=== PATIENT | male | born 1980 | race Two or more races ===

== ENCOUNTER 2019-10-22 20:46 | Inpatient (IN) | payer MEDICAID ==
[~2019-10-22] VITALS: Ht 170.2 cm; Wt 84.8 kg
[2019-10-22 21:00] VITALS: BP 107/68
[2019-10-22] MEDS ORDERED: Azithromycin 500 MG in D5W 275 ML IVPB ONE (21:00)
[2019-10-22] MEDS ORDERED: cefTRIAXone 1 GM in NS 55 ML IVPB ONE (21:00)
[2019-10-22] MEDS ORDERED: Acetaminophen 500mg (ES) tab ORAL ONE ×2 (21:22→22:00)
--- NOTE | 2019-10-22 21:52 | Emergency Room Report ---
History of Present Illness General Chief Complaint: Flu Like Symptoms Source: Patient Present Illness HPI Patient was evaluated earlier today. His x-ray was consistent with COVID-19 pneumonia. He refused labs and signed out AMA stating he wanted to go to [place] to . He is returned at this time. He has been ill for several weeks with cough shortness of breath fevers and chills muscle aches. He does not smoke. This is the history that was obtained before: Patient presents with 1 week of worsening symptoms. He has had a cough, some chest pain with the cough, high fevers, weakness and muscle aches and occasional headache and some dyspnea on exertion. Recently the dyspnea is worsened. He feels this at rest. He is felt some nausea but denies vomiting. His stools have occasionally been loose. 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 He is not diabetic or hypertensive. He is concerned he has COVID-19. No sore throat, palpitations, dysuria, abdominal pain, rashes, depression, anxiety, visual changes, dizziness. 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 [facility] Reviewed Nursing Documentation: PMH: Agreed; PSxH: Agreed Nursing Documentation-PMH Past Medical History: No Stated History Review of Systems All Other Systems: negative except mentioned in HPI Physical Exam Vital Signs Date Time Temp Pulse Resp B/P (MAP) Pulse Ox O2 Delivery O2 Flow Rate FiO2 10/22/19 20:59 102.4 118 22 107/68 (81) 92 Room Air Sp02 EP Interpretation: reviewed, abnormal - Interpreted as low by me General Appearance: well appearing, no apparent distress, GCS 15, non-toxic Head: normocephalic Eyes: bilateral eye normal inspection, bilateral eye PERRL, bilateral eye EOMI ENT: normal pharynx, moist mucus membranes Neck: full range of motion, supple Respiratory: lungs clear, respiratory distress - Minimal with exertion, crackles Cardiovascular #1: no edema, tachycardia Cardiovascular #2: 2+ radial (R) Gastrointestinal: normal inspection, normal bowel sounds, non tender, no mass, non-distended Genitourinary: no CVA tenderness Musculoskeletal: back normal, normal range of motion, gait/station normal Neurologic: alert, oriented x3, grossly normal Psychiatric: mood/affect normal Skin: no rash, other - Warm to touch Medical Decision Making Diagnostic Impression: Primary Impression: Pneumonia due to COVID-19 virus ER Course Patient returns with hypoxia pulmonary infiltrates and fever. Differential includes bacterial versus viral pneumonia. Patient is highly suspected for having COVID-19 disease. Evaluation this time with EKG and labs. Tylenol given , Rocephin and azithromycin and dexamethasone given. Other treatment may be tailored to lab results. Patient treated with some IV hydration but not excessive. EKG no injury. Chest x-ray from prior visit with bilateral infiltrates. Normal to low white count. CMP essentially normal except for increased alkaline phosphatase. Indirect markers for COVID-19 are positive including C- reactive protein, ferritin and LDH. Troponin is negative. D-dimer is negative. Based on normal coagulation studies Lovenox is held. Patient without dyspnea at rest without oxygen. This may change. Discussed results with patient. Patient admitted to the hospital for further observation and considerations for other treatment. Laboratory Tests Test 10/22/19 21:30 White Blood Count 6.7 K/UL (4.8-10.8) Red Blood Count 5.32 M/UL (4.70-6.10) Hemoglobin 15.7 G/DL (14.2-18.0) Hematocrit 46.0 % (42.0-52.0) Mean Corpuscular Volume 86 FL (80-99) Mean Corpuscular Hemoglobin 29.6 PG (27.0-31.0) Mean Corpuscular Hemoglobin Concent 34.2 G/DL (32.0-36.0) Red Cell Distribution Width 11.3 % (11.6-14.8) L Platelet Count 141 K/UL (150-450) L Mean Platelet Volume 7.1 FL (6.5-10.1) Neutrophils (%) (Auto) 69.5 % (45.0-75.0) Lymphocytes (%) (Auto) 21.5 % (20.0-45.0) Monocytes (%) (Auto) 8.2 % (1.0-10.0) Eosinophils (%) (Auto) 0.0 % (0.0-3.0) Basophils (%) (Auto) 0.8 % (0.0-2.0) Prothrombin Time 13.0 SEC (9.30-11.50) H Prothrombin Time INR 1.2 (0.9-1.1) H Activated Partial Thromboplast Time 34 SEC (23-33) H D-Dimer 0.31 mg/L FEU (0.00-0.49) Urine Color Yellow Urine Appearance Clear Urine pH 6 (4.5-8.0) Urine Specific [place] 1.010 (1.005-1.035) Urine Protein 2+ (NEGATIVE) H Urine Glucose (UA) Negative (NEGATIVE) Urine Ketones 2+ (NEGATIVE) H Urine Blood Negative (NEGATIVE) Urine Nitrite Negative (NEGATIVE) Urine Bilirubin Negative (NEGATIVE) Urine Urobilinogen Normal MG/DL (0.0-1.0) Urine Leukocyte Esterase Negative (NEGATIVE) Urine RBC 0-2 /HPF (0 - 0) H Urine WBC 0-2 /HPF (0 - 0) Urine Squamous Epithelial Cells Occasional /LPF Urine Bacteria Few /HPF (NONE) Sodium Level 133 MMOL/L (136-145) L Potassium Level 3.8 MMOL/L (3.5-5.1) Chloride Level 95 MMOL/L (98-107) L Carbon Dioxide Level 27 MMOL/L (21-32) Anion Gap 11 mmol/L (5-15) Blood Urea Nitrogen 11 mg/dL (7-18) Creatinine 1.3 MG/DL (0.55-1.30) Estimated Glomerular Filtration Rate > 60 mL/min (>60) Glucose Level 101 MG/DL (74-106) Lactic Acid Level 1.00 mmol/L (0.4-2.0) Calcium Level 7.9 MG/DL (8.5-10.1) L Magnesium Level 2.2 MG/DL (1.8-2.4) Ferritin 484 NG/ML (8-388) H Total Bilirubin 1.4 MG/DL (0.2-1.0) H Direct Bilirubin 0.3 MG/DL (0.0-0.3) Aspartate Amino Transferase (AST) 43 U/L (15-37) H Alanine Aminotransferase (ALT) 58 U/L (12-78) Alkaline Phosphatase 136 U/L (46-116) H Lactate Dehydrogenase 287 U/L (81-234) H Total Creatine Kinase 124 U/L (26-308) Troponin I 0.000 ng/mL (0.000-0.056) C-Reactive Protein, Quantitative 5.3 mg/dL (0.00-0.90) H Pro-B-Type Natriuretic Peptide 16 pg/mL (0-125) Total Protein 8.4 G/DL (6.4-8.2) H Albumin 4.5 G/DL (3.4-5.0) Globulin 3.9 g/dL Albumin/Globulin Ratio 1.2 (1.0-2.7) Lipase 128 U/L (73-393) Microbiology Date/Time Source Procedure Growth Status 10/22/19 21:40 Nasopharynx SARS-CoV-2 RdRp Gene Assay - Final Complete EKG Diagnostic Results Rate: normal Rhythm: NSR ST Segments: no acute changes Rhythm Strip Diag. Results EP Interpretation: yes Rhythm: NSR, no PVC's, no ectopy Chest X-Ray Diagnostic Results Chest X-Ray Diagnostic Results : Chest X-Ray Ordered: Yes # of Views/Limited/Complete: 1 View Indication: Shortness of Breath EP Interpretation: Yes Interpretation: no effusion, no pneumothorax, other - Bilateral infiltrates Impression: Other Electronically Signed by: Electronically signed by Alexi Draper MD Last Vital Signs Date Time Temp Pulse Resp B/P (MAP) Pulse Ox O2 Delivery O2 Flow Rate FiO2 10/23/19 00:00 99.0 87 18 114/64 (81) 97 10/22/19 23:11 Room Air Status: improved Disposition: ADMITTED INPATIENT Condition: Serious Referrals: NOT CHOSEN IPA/,REFERRING (PCP) Aleix Draper MD Oct 22, 2019 21:52
[2019-10-22 21:54] LABS: BASOPHILS % (AUTO) 0.8 % (0.0-2.0); HEMOGLOBIN 15.7 G/DL (14.2-18.0); LYMPHOCYTES % (AUTO) 21.5 % (20.0-45.0); MEAN CORPUSCULAR VOLUME 86 FL (80-99); MONOCYTES % (AUTO) 8.2 % (1.0-10.0); NEUTROPHILS % (AUTO) 69.5 % (45.0-75.0); PLATELET COUNT 141 K/UL (150-450); RED BLOOD COUNT 5.32 M/UL (4.70-6.10); RED CELL DISTRIBUTION WIDTH 11.3 % (11.6-14.8); WHITE BLOOD COUNT 6.7 K/UL (4.8-10.8)
[2019-10-22 21:58] LABS: BILIRUBIN, URINE NEGATIVE (NEGATIVE); GLUCOSE, URINE (UA) NEGATIVE (NEGATIVE); KETONES,URINE 2+ (NEGATIVE); LEUKOCYTE ESTERASE ,URINE NEGATIVE (NEGATIVE); NITRITE,URINE NEGATIVE (NEGATIVE); PH,URINE 6 (4.5-8.0); PROTEIN,URINE 2+ (NEGATIVE); UROBILINOGEN,URINE NORMAL MG/DL (0.0-1.0)
[2019-10-22 21:59] LABS: APPEARANCE,URINE CLEAR; COLOR,URINE YELLOW
[2019-10-22 22:08] LABS: ANION GAP 11 mmol/L (5-15); BLOOD UREA NITROGEN 11 mg/dL (7-18); CALCIUM 7.9 MG/DL (8.5-10.1); CARBON DIOXIDE 27 MMOL/L (21-32); CHLORIDE 95 MMOL/L (98-107); CREATININE 1.3 MG/DL (0.55-1.30); INR 1.2 (0.9-1.1); POTASSIUM 3.8 MMOL/L (3.5-5.1); SODIUM 133 MMOL/L (136-145)
[2019-10-22 22:21] LABS: ALANINE AMINOTRANSFERASE 58 U/L (12-78); ALBUMIN 4.5 G/DL (3.4-5.0); ALBUMIN/GLOBULIN RATIO 1.2 (1.0-2.7); ALKALINE PHOSPHATASE 136 U/L (46-116); ASPARTATE AMINO TRANSFERASE 43 U/L (15-37); BILIRUBIN,TOTAL 1.4 MG/DL (0.2-1.0); CREATINE KINASE 124 U/L (26-308); FERRITIN 484 NG/ML (8-388); LACTATE DEHYDROGENASE 287 U/L (81-234)
[2019-10-22 22:22] LABS: BILIRUBIN,DIRECT 0.3 MG/DL (0.0-0.3)
--- NOTE | 2019-10-22 22:41 | History & Physical ---
History and Physical History & Physicial History of Present Illness General Chief Complaint: Flu Like Symptoms Source: Patient Present Illness HPI Patient was evaluated earlier today. His x-ray was consistent with COVID-19 pneumonia. He refused labs and signed out AMA stating he wanted to go to [place] to . He is returned at this time. He has been ill for several weeks with cough shortness of breath fevers and chills muscle aches. He does not smoke. This is the history that was obtained before: Patient presents with 1 week of worsening symptoms. He has had a cough, some chest pain with the cough, high fevers, weakness and muscle aches and occasional headache and some dyspnea on exertion. Recently the dyspnea is worsened. He feels this at rest. He is felt some nausea but denies vomiting. His stools have occasionally been loose. 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 He is not diabetic or hypertensive. He is concerned he has COVID-19. No sore throat, palpitations, dysuria, abdominal pain, rashes, depression, anxiety, visual changes, dizziness. 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 Nursing Documentation: PMH: Agreed; PSxH: Agreed Nursing Documentation-PMH Past Medical History: No Stated History Review of Systems All Other Systems: negative except mentioned in HPI Physical Exam Vital Signs Date Time Temp Pulse Resp B/P (MAP) Pulse Ox O2 Delivery O2 Flow Rate FiO2 10/22/19 20:59 102.4 118 22 107/68 (81) 92 Room Air General Appearance: well appearing, no apparent distress, GCS 15, non-toxic Head: normocephalic Eyes: bilateral eye normal inspection, bilateral eye PERRL, bilateral eye EOMI ENT: normal pharynx, moist mucus membranes Neck: full range of motion, supple Respiratory: lungs clear, respiratory distress - Minimal with exertion, crackles Cardiovascular #1: no edema, tachycardia Cardiovascular #2: 2+ radial (R) Gastrointestinal: normal inspection, normal bowel sounds, non tender, no mass, non-distended Genitourinary: no CVA tenderness Musculoskeletal: back normal, normal range of motion, gait/station normal Neurologic: alert, oriented x3, grossly normal Psychiatric: mood/affect normal Skin: no rash, other - Warm to touch Pneumonia due to COVID-19 virus ER Course Patient returns with hypoxia pulmonary infiltrates and fever. Differential includes bacterial versus viral pneumonia. Patient is highly suspected for having COVID-19 disease. Evaluation this time with EKG and labs. Tylenol given , Rocephin and azithromycin and dexamethasone given. Other treatment may be tailored to lab results. Patient treated with some IV hydration but not excessive. EKG no injury. Chest x-ray from prior visit with bilateral infiltrates. Normal to low white count. CMP essentially normal except for increased alkaline phosphatase. Indirect markers for COVID-19 are positive including C- reactive protein, ferritin and LDH. Troponin is negative. D-dimer is negative. Laboratory Tests Test 10/22/19 21:30 White Blood Count 6.7 K/UL (4.8-10.8) Red Blood Count 5.32 M/UL (4.70-6.10) Hemoglobin 15.7 G/DL (14.2-18.0) Hematocrit 46.0 % (42.0-52.0) Mean Corpuscular Volume 86 FL (80-99) Mean Corpuscular Hemoglobin 29.6 PG (27.0-31.0) Mean Corpuscular Hemoglobin Concent 34.2 G/DL (32.0-36.0) Red Cell Distribution Width 11.3 % (11.6-14.8) L Platelet Count 141 K/UL (150-450) L Mean Platelet Volume 7.1 FL (6.5-10.1) Neutrophils (%) (Auto) 69.5 % (45.0-75.0) Lymphocytes (%) (Auto) 21.5 % (20.0-45.0) Monocytes (%) (Auto) 8.2 % (1.0-10.0) Eosinophils (%) (Auto) 0.0 % (0.0-3.0) Basophils (%) (Auto) 0.8 % (0.0-2.0) Prothrombin Time 13.0 SEC (9.30-11.50) H Prothrombin Time INR 1.2 (0.9-1.1) H Activated Partial Thromboplast Time 34 SEC (23-33) H D-Dimer 0.31 mg/L FEU (0.00-0.49) Urine Color Yellow Urine Appearance Clear Urine pH 6 (4.5-8.0) Urine Specific [place] 1.010 (1.005-1.035) Urine Protein 2+ (NEGATIVE) H Urine Glucose (UA) Negative (NEGATIVE) Urine Ketones 2+ (NEGATIVE) H Urine Blood Negative (NEGATIVE) Urine Nitrite Negative (NEGATIVE) Urine Bilirubin Negative (NEGATIVE) Urine Urobilinogen Normal MG/DL (0.0-1.0) Urine Leukocyte Esterase Negative (NEGATIVE) Urine RBC 0-2 /HPF (0 - 0) H Urine WBC 0-2 /HPF (0 - 0) Urine Squamous Epithelial Cells Occasional /LPF Urine Bacteria Few /HPF (NONE) Sodium Level 133 MMOL/L (136-145) L Potassium Level 3.8 MMOL/L (3.5-5.1) Chloride Level 95 MMOL/L (98-107) L Carbon Dioxide Level 27 MMOL/L (21-32) Anion Gap 11 mmol/L (5-15) Blood Urea Nitrogen 11 mg/dL (7-18) Creatinine 1.3 MG/DL (0.55-1.30) Estimated Glomerular Filtration Rate > 60 mL/min (>60) Glucose Level 101 MG/DL (74-106) Lactic Acid Level 1.00 mmol/L (0.4-2.0) Calcium Level 7.9 MG/DL (8.5-10.1) L Magnesium Level 2.2 MG/DL (1.8-2.4) Ferritin 484 NG/ML (8-388) H Total Bilirubin 1.4 MG/DL (0.2-1.0) H Direct Bilirubin 0.3 MG/DL (0.0-0.3) Aspartate Amino Transferase (AST) 43 U/L (15-37) H Alanine Aminotransferase (ALT) 58 U/L (12-78) Alkaline Phosphatase 136 U/L (46-116) H Lactate Dehydrogenase 287 U/L (81-234) H Total Creatine Kinase 124 U/L (26-308) Troponin I 0.000 ng/mL (0.000-0.056) C-Reactive Protein, Quantitative 5.3 mg/dL (0.00-0.90) H Pro-B-Type Natriuretic Peptide 16 pg/mL (0-125) Total Protein 8.4 G/DL (6.4-8.2) H Albumin 4.5 G/DL (3.4-5.0) Globulin 3.9 g/dL Albumin/Globulin Ratio 1.2 (1.0-2.7) Lipase 128 U/L (73-393) Microbiology Date/Time Source Procedure Growth Status 10/22/19 21:40 Nasopharynx SARS-CoV-2 RdRp Gene Assay - Final Complete EKG Diagnostic Results Rate: normal Rhythm: NSR ST Segments: no acute changes Chest X-Ray Diagnostic Results Chest X-Ray Diagnostic Results : Chest X-Ray Ordered: Yes # of Views/Limited/Complete: 1 View Indication: Shortness of Breath EP Interpretation: Yes Interpretation: no effusion, no pneumothorax, other - Bilateral infiltrates Impression: COVID 19 Pnemonia bilateral infiltrate dyspnea cough PLAN: abx oxygen consider dexamethasone PULM eval see orders FULL code Kolton Hunt MD [facility] [phone] time spent today 75 min over 50% in education, coordination, explanation pathophysiology. Kolton Hunt MD Oct 22, 2019 22:41
[2019-10-22 23:00] VITALS: BP 116/62
[2019-10-22] MEDS ORDERED: Albuterol ud Inhalation HHN PRN (23:30)
[2019-10-23] VITALS: BP 114/64
[2019-10-23 04:00] VITALS: BP 103/61
[2019-10-23 04:46] LABS: BASOPHILS % (AUTO) 0.6 % (0.0-2.0); HEMATOCRIT 47.7 % (42.0-52.0); HEMOGLOBIN 15.9 G/DL (14.2-18.0); LYMPHOCYTES % (AUTO) 31.9 % (20.0-45.0); MEAN CORPUSCULAR VOLUME 89 FL (80-99); MONOCYTES % (AUTO) 4.4 % (1.0-10.0); PLATELET COUNT 152 K/UL (150-450); RED BLOOD COUNT 5.36 M/UL (4.70-6.10); RED CELL DISTRIBUTION WIDTH 10.6 % (11.6-14.8); WHITE BLOOD COUNT 4.9 K/UL (4.8-10.8)
[2019-10-23 06:10] LABS: ALANINE AMINOTRANSFERASE 62 U/L (12-78); ALBUMIN 4.4 G/DL (3.4-5.0); ALKALINE PHOSPHATASE 139 U/L (46-116); ANION GAP 12 mmol/L (5-15); ASPARTATE AMINO TRANSFERASE 46 U/L (15-37); BILIRUBIN,TOTAL 1.1 MG/DL (0.2-1.0); BLOOD UREA NITROGEN 12 mg/dL (7-18); CALCIUM 8.5 MG/DL (8.5-10.1); CARBON DIOXIDE 26 MMOL/L (21-32); CHLORIDE 100 MMOL/L (98-107); CREATININE 1.2 MG/DL (0.55-1.30); PHOSPHORUS 4.8 MG/DL (2.5-4.9); POTASSIUM 4.9 MMOL/L (3.5-5.1); SODIUM 138 MMOL/L (136-145)
[2019-10-23 06:46] LABS: BILIRUBIN,DIRECT 0.3 MG/DL (0.0-0.3)
[2019-10-23 08:00] VITALS: BP 113/66
[2019-10-23] MEDS: Heparin 5000 units/ml inj SUBQ SCH ×2 (08:58→20:55)
[2019-10-23 12:00] VITALS: BP 109/60
--- NOTE | 2019-10-23 14:45 | Consultation ---
DATE OF CONSULTATION: 10/23/2019 PULMONARY CONSULTATION CONSULTING PHYSICIAN: Keven Weller MD. REFERRING PHYSICIAN: Aurora Car MD. REASON FOR CONSULTATION: Pneumonia. HISTORY OF PRESENT ILLNESS: This is a 39-year-old male with a history of probable COVID-19 pneumonia. He was seen previously at this emergency room but signed out AMA. He was found to be positive for COVID-19 on rapid PCR testing. He admits to cough, shortness of breath, fevers, generalized muscle weakness as well as nausea. REVIEW OF SYSTEMS: Denies any headaches, hematemesis, melena, hematochezia, or weight loss. PAST MEDICAL HISTORY: None. ALLERGIES: None. PHYSICAL EXAMINATION: GENERAL: Reveals a 39-year-old male. HEENT: Unremarkable. VITAL SIGNS: O2 saturation % on room air, blood pressure 110/60, heart rate 84, respirations 20. He is afebrile HEART: Regular. LUNGS: Clear breath sounds bilaterally. ABDOMEN: Soft. EXTREMITIES: There is no edema. LABORATORY DATA: Blood testing shows a normal CBC and BMP. Lactic acid is normal. Troponin is negative. PCR is positive COVID-19. IMAGING STUDIES: X-ray chest was obtained yesterday, which shows bilateral infiltrates. IMPRESSION: Bilateral COVID-19 pneumonia. DISCUSSION: Admit to the hospital. The patient will benefit from remdesivir as well as dexamethasone. Await ID consultation. We will follow as public health social worker. Keven Weller M.D. DR: BANDAR JOB#: [id number] CC:
--- NOTE | 2019-10-23 15:42 | Internal Med Progress Note ---
Subjective Date of Service: Oct 23, 2019 Physician Name Kolton Hunt Attending Physician Aurora Car M.D. Current Medications Medications (Trade) Dose Ordered Sig/Jose Route PRN Reason Start Time Stop Time Status Last Admin Dose Admin Acetaminophen (Tylenol) 650 mg Q6H PRN ORAL Temp >100.5 10/22/19 23:30 11/21/19 23:29 Albuterol Sulfate (Proventil) 2.5 mg Q6H PRN HHN Shortness of Breath 10/22/19 23:30 10/27/19 23:29 Azithromycin 500 mg/Dextrose 275 ml @ 275 mls/hr Q24H IV 10/23/19 21:00 10/29/19 21:59 Heparin Sodium (Porcine) (Heparin 5000 units/ml) 5,000 units EVERY 12 HOURS SUBQ 10/23/19 09:00 12/07/19 08:59 10/23/19 08:58 Allergies: Coded Allergies: No Known Allergies (Unverified , 10/22/19) Constitutional: Reports: weakness HEENT: Reports: no symptoms Respiratory: Reports: cough Gastrointestinal/Abdominal: Reports: no symptoms Genitourinary: Reports: no symptoms Neurologic/Psychiatric: Reports: no symptoms All Systems: reviewed and negative except above Subjective feels the same cough Objective Last Vital Signs Date Time Temp Pulse Resp B/P (MAP) Pulse Ox O2 Delivery O2 Flow Rate FiO2 10/23/19 12:00 97.0 79 18 109/60 (76) 97 10/23/19 09:00 Room Air General Appearance: no apparent distress Neck: supple Cardiovascular: normal rate, regular rhythm Respiratory/Chest: no respiratory distress, no accessory muscle use, rhonchi - right Abdomen: normal bowel sounds, non tender, soft Neurologic: alert, oriented x 3 Skin: warm/dry Laboratory Tests Test 10/22/19 21:30 10/23/19 04:30 White Blood Count 6.7 K/UL (4.8-10.8) 4.9 K/UL (4.8-10.8) Red Blood Count 5.32 M/UL (4.70-6.10) 5.36 M/UL (4.70-6.10) Hemoglobin 15.7 G/DL (14.2-18.0) 15.9 G/DL (14.2-18.0) Hematocrit 46.0 % (42.0-52.0) 47.7 % (42.0-52.0) Mean Corpuscular Volume 86 FL (80-99) 89 FL (80-99) Mean Corpuscular Hemoglobin 29.6 PG (27.0-31.0) 29.6 PG (27.0-31.0) Mean Corpuscular Hemoglobin Concent 34.2 G/DL (32.0-36.0) 33.3 G/DL (32.0-36.0) Red Cell Distribution Width 11.3 % (11.6-14.8) L 10.6 % (11.6-14.8) L Platelet Count 141 K/UL (150-450) L 152 K/UL (150-450) Mean Platelet Volume 7.1 FL (6.5-10.1) 7.3 FL (6.5-10.1) Neutrophils (%) (Auto) 69.5 % (45.0-75.0) 63.0 % (45.0-75.0) Lymphocytes (%) (Auto) 21.5 % (20.0-45.0) 31.9 % (20.0-45.0) Monocytes (%) (Auto) 8.2 % (1.0-10.0) 4.4 % (1.0-10.0) Eosinophils (%) (Auto) 0.0 % (0.0-3.0) 0.0 % (0.0-3.0) Basophils (%) (Auto) 0.8 % (0.0-2.0) 0.6 % (0.0-2.0) Prothrombin Time 13.0 SEC (9.30-11.50) H Prothromb Time International Ratio 1.2 (0.9-1.1) H Activated Partial Thromboplast Time 34 SEC (23-33) H D-Dimer 0.31 mg/L FEU (0.00-0.49) Urine Color Yellow Urine Appearance Clear Urine pH 6 (4.5-8.0) Urine Specific [place] 1.010 (1.005-1.035) Urine Protein 2+ (NEGATIVE) H Urine Glucose (UA) Negative (NEGATIVE) Urine Ketones 2+ (NEGATIVE) H Urine Blood Negative (NEGATIVE) Urine Nitrite Negative (NEGATIVE) Urine Bilirubin Negative (NEGATIVE) Urine Urobilinogen Normal MG/DL (0.0-1.0) Urine Leukocyte Esterase Negative (NEGATIVE) Urine RBC 0-2 /HPF (0 - 0) H Urine WBC 0-2 /HPF (0 - 0) Urine Squamous Epithelial Cells Occasional /LPF Urine Bacteria Few /HPF (NONE) Sodium Level 133 MMOL/L (136-145) L 138 MMOL/L (136-145) Potassium Level 3.8 MMOL/L (3.5-5.1) 4.9 MMOL/L (3.5-5.1) Chloride Level 95 MMOL/L (98-107) L 100 MMOL/L (98-107) Carbon Dioxide Level 27 MMOL/L (21-32) 26 MMOL/L (21-32) Anion Gap 11 mmol/L (5-15) 12 mmol/L (5-15) Blood Urea Nitrogen 11 mg/dL (7-18) 12 mg/dL (7-18) Creatinine 1.3 MG/DL (0.55-1.30) 1.2 MG/DL (0.55-1.30) Estimat Glomerular Filtration Rate > 60 mL/min (>60) > 60 mL/min (>60) Glucose Level 101 MG/DL (74-106) 135 MG/DL (74-106) H Lactic Acid Level 1.00 mmol/L (0.4-2.0) Calcium Level 7.9 MG/DL (8.5-10.1) L 8.5 MG/DL (8.5-10.1) Magnesium Level 2.2 MG/DL (1.8-2.4) 2.9 MG/DL (1.8-2.4) H Ferritin 484 NG/ML (8-388) H Total Bilirubin 1.4 MG/DL (0.2-1.0) H 1.1 MG/DL (0.2-1.0) H Direct Bilirubin 0.3 MG/DL (0.0-0.3) 0.3 MG/DL (0.0-0.3) Aspartate Amino Transf (AST/SGOT) 43 U/L (15-37) H 46 U/L (15-37) H Alanine Aminotransferase (ALT/SGPT) 58 U/L (12-78) 62 U/L (12-78) Alkaline Phosphatase 136 U/L (46-116) H 139 U/L (46-116) H Lactate Dehydrogenase 287 U/L (81-234) H Total Creatine Kinase 124 U/L (26-308) Troponin I 0.000 ng/mL (0.000-0.056) C-Reactive Protein, Quantitative 5.3 mg/dL (0.00-0.90) H Pro-B-Type Natriuretic Peptide 16 pg/mL (0-125) Total Protein 8.4 G/DL (6.4-8.2) H 8.6 G/DL (6.4-8.2) H Albumin 4.5 G/DL (3.4-5.0) 4.4 G/DL (3.4-5.0) Globulin 3.9 g/dL 4.2 g/dL Albumin/Globulin Ratio 1.2 (1.0-2.7) 1.0 (1.0-2.7) Lipase 128 U/L (73-393) Phosphorus Level 4.8 MG/DL (2.5-4.9) Microbiology Date/Time Source Procedure Growth Status 10/22/19 21:40 Nasopharynx SARS-CoV-2 RdRp Gene Assay - Final Complete Assessment/Plan Status: stable, tolerating diet Assessment/Plan Impression: COVID 19 Pnemonia bilateral infiltrate dyspnea cough PLAN: abx oxygen consider dexamethasone PULM eval FULL code Kolton Hunt MD Internal Medicine [phone] time spent today 35 min over 50% in education, coordination, explanation pathophysiology. Kolton Hunt MD Oct 23, 2019 15:42
[2019-10-23 16:00] VITALS: BP 114/67
[2019-10-23 20:00] VITALS: BP 110/71
[2019-10-23] MEDS: Azithromycin 500 MG in D5W 275 ML IV SCH (20:53)
[2019-10-24] VITALS (7 sets, daily range): BP systolic 110–137; BP diastolic 60–80
[2019-10-24 06:43] LABS: BASOPHILS % (AUTO) 0.4 % (0.0-2.0); HEMATOCRIT 49.9 % (42.0-52.0); HEMOGLOBIN 16.6 G/DL (14.2-18.0); LYMPHOCYTES % (AUTO) 19.1 % (20.0-45.0); MEAN CORPUSCULAR VOLUME 89 FL (80-99); MONOCYTES % (AUTO) 4.5 % (1.0-10.0); NEUTROPHILS % (AUTO) 76.1 % (45.0-75.0); PLATELET COUNT 169 K/UL (150-450); RED BLOOD COUNT 5.62 M/UL (4.70-6.10); RED CELL DISTRIBUTION WIDTH 10.6 % (11.6-14.8); WHITE BLOOD COUNT 11.4 K/UL (4.8-10.8)
[2019-10-24 07:00] LABS: ALANINE AMINOTRANSFERASE 49 U/L (12-78); ALBUMIN 4.2 G/DL (3.4-5.0); ALKALINE PHOSPHATASE 121 U/L (46-116); ANION GAP 13 mmol/L (5-15); ASPARTATE AMINO TRANSFERASE 37 U/L (15-37); BILIRUBIN,TOTAL 0.9 MG/DL (0.2-1.0); BLOOD UREA NITROGEN 10 mg/dL (7-18); CALCIUM 8.4 MG/DL (8.5-10.1); CARBON DIOXIDE 26 MMOL/L (21-32); CHLORIDE 98 MMOL/L (98-107); PHOSPHORUS 2.8 MG/DL (2.5-4.9); POTASSIUM 3.4 MMOL/L (3.5-5.1); SODIUM 137 MMOL/L (136-145)
[2019-10-24] MEDS: Heparin 5000 units/ml inj SUBQ SCH ×2 (08:23→20:13)
--- NOTE | 2019-10-24 10:19 | Pulmonology Progress Note ---
Subjective Interval Events: None new Constitutional: Reports: no symptoms HEENT: Repors: no symptoms Respiratory: Reports: no symptoms Allergies: Coded Allergies: No Known Allergies (Unverified , 10/22/19) Objective Last 24 Hour Vital Signs Date Time Temp Pulse Resp B/P (MAP) Pulse Ox O2 Delivery O2 Flow Rate FiO2 10/24/19 09:00 Room Air 10/24/19 08:51 98.2 10/24/19 08:51 98.2 10/24/19 08:00 100.8 80 18 137/80 (99) 96 10/24/19 04:00 99.7 98 24 128/77 (94) 98 10/24/19 00:00 99.1 92 22 117/60 (79) 97 10/23/19 21:00 Room Air 10/23/19 20:00 98.4 88 20 110/71 (84) 96 10/23/19 19:34 86 20 97 Room Air 21 10/23/19 16:00 98.2 81 18 114/67 (83) 96 10/23/19 12:00 97.0 79 18 109/60 (76) 97 Intake and Output 10/23/19 10/24/19 19:00 07:00 Intake Total 500 ml 2275 ml Balance 500 ml 2275 ml Intake Oral 500 ml 2000 ml IV Total 275 ml # Voids 8 # Bowel Movements 1 General Appearance: no acute distress HEENT: normocephalic Respiratory: chest wall non-tender, lungs clear Cardiovascular: normal peripheral pulses Abdomen: normal bowel sounds Microbiology Date/Time Source Procedure Growth Status 10/22/19 21:30 Blood Blood Culture - Preliminary NO GROWTH AFTER 24 HOURS Resulted 10/22/19 21:15 Blood Blood Culture - Preliminary NO GROWTH AFTER 24 HOURS Resulted 10/22/19 21:40 Nasopharynx SARS-CoV-2 RdRp Gene Assay - Final Complete Laboratory Tests 10/24/19 06:15: White Blood Count 11.4#H, Red Blood Count 5.62, Hemoglobin 16.6, Hematocrit 49.9 , Mean Corpuscular Volume 89, Mean Corpuscular Hemoglobin 29.6, Mean Corpuscular Hemoglobin Concent 33.3, Red Cell Distribution Width 10.6L, Platelet Count 169, Mean Platelet Volume 6.5, Neutrophils (%) (Auto) 76.1H, Lymphocytes (%) (Auto) 19.1L, Monocytes (%) (Auto) 4.5, Eosinophils (%) (Auto) 0.0, Basophils (%) (Auto) 0.4, Sodium Level 137, Potassium Level 3.4L, Chloride Level 98, Carbon Dioxide Level 26, Anion Gap 13, Blood Urea Nitrogen 10, Creatinine 1.0, Estimat Glomerular Filtration Rate > 60, Glucose Level 107H, Calcium Level 8.4L, Phosphorus Level 2.8, Magnesium Level 2.2, Total Bilirubin 0.9, Aspartate Amino Transf (AST/SGOT) 37, Alanine Aminotransferase (ALT/SGPT) 49, Alkaline Phosphatase 121H, Total Protein 8.3H, Albumin 4.2, Globulin 4.1, Albumin/Globulin Ratio 1.0 Current Medications Medications (Trade) Dose Ordered Sig/Jose Route PRN Reason Start Time Stop Time Status Last Admin Dose Admin Acetaminophen (Tylenol) 650 mg Q6H PRN ORAL Temp >100.5 10/22/19 23:30 11/21/19 23:29 10/24/19 08:21 Albuterol Sulfate (Proventil) 2.5 mg Q6H PRN HHN Shortness of Breath 10/22/19 23:30 10/27/19 23:29 Azithromycin 500 mg/Dextrose 275 ml @ 275 mls/hr Q24H IV 10/23/19 21:00 10/29/19 21:59 10/23/19 20:53 Heparin Sodium (Porcine) (Heparin 5000 units/ml) 5,000 units EVERY 12 HOURS SUBQ 10/23/19 09:00 12/07/19 08:59 10/24/19 08:23 Assessment/Plan Assessment/Plan IMPRESSION: Bilateral COVID-19 pneumonia. 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 Saturating well on RA Kellie Paulson Omar Syed MD Oct 24, 2019 10:19
[2019-10-24] MEDS ORDERED: Albuterol 90mcg Inhaler 8gm INH PRN (10:30)
[2019-10-24] MEDS: Azithromycin 500 MG in D5W 275 ML IV SCH (20:12)
--- NOTE | 2019-10-24 23:17 | Internal Med Progress Note ---
Subjective Date of Service: Oct 24, 2019 Physician Name Kolton Hunt Attending Physician Aurora Car M.D. Current Medications Medications (Trade) Dose Ordered Sig/Jose Route PRN Reason Start Time Stop Time Status Last Admin Dose Admin Acetaminophen (Tylenol) 650 mg Q6H PRN ORAL Temp >100.5 10/22/19 23:30 11/21/19 23:29 10/24/19 08:21 Albuterol Sulfate (Proventil MDI) 2 puff Q6H PRN INH Shortness of Breath 10/24/19 10:30 01/22/20 10:29 Azithromycin 500 mg/Dextrose 275 ml @ 275 mls/hr Q24H IV 10/23/19 21:00 10/29/19 21:59 10/24/19 20:12 Heparin Sodium (Porcine) (Heparin 5000 units/ml) 5,000 units EVERY 12 HOURS SUBQ 10/23/19 09:00 12/07/19 08:59 10/24/19 20:13 Allergies: Coded Allergies: No Known Allergies (Unverified , 10/22/19) Constitutional: Reports: no symptoms HEENT: Reports: no symptoms Cardiovascular: Reports: no symptoms Respiratory: Reports: cough Gastrointestinal/Abdominal: Reports: no symptoms Neurologic/Psychiatric: Reports: no symptoms All Systems: reviewed and negative except above Subjective feels bit improved off oxygen on RA Objective Last Vital Signs Date Time Temp Pulse Resp B/P (MAP) Pulse Ox O2 Delivery O2 Flow Rate FiO2 10/24/19 21:15 Room Air 10/24/19 20:00 100.1 105 18 130/76 (94) 98 10/23/19 19:34 21 General Appearance: no apparent distress EENT: pharynx normal Neck: supple Cardiovascular: normal rate, regular rhythm, no gallop/murmur Respiratory/Chest: normal breath sounds, no respiratory distress, no accessory muscle use Abdomen: normal bowel sounds, non tender, soft, no mass Neurologic: alert, oriented x 3, responsive Skin: warm/dry Laboratory Tests Test 10/24/19 06:15 White Blood Count 11.4 K/UL (4.8-10.8) #H Red Blood Count 5.62 M/UL (4.70-6.10) Hemoglobin 16.6 G/DL (14.2-18.0) Hematocrit 49.9 % (42.0-52.0) Mean Corpuscular Volume 89 FL (80-99) Mean Corpuscular Hemoglobin 29.6 PG (27.0-31.0) Mean Corpuscular Hemoglobin Concent 33.3 G/DL (32.0-36.0) Red Cell Distribution Width 10.6 % (11.6-14.8) L Platelet Count 169 K/UL (150-450) Mean Platelet Volume 6.5 FL (6.5-10.1) Neutrophils (%) (Auto) 76.1 % (45.0-75.0) H Lymphocytes (%) (Auto) 19.1 % (20.0-45.0) L Monocytes (%) (Auto) 4.5 % (1.0-10.0) Eosinophils (%) (Auto) 0.0 % (0.0-3.0) Basophils (%) (Auto) 0.4 % (0.0-2.0) Sodium Level 137 MMOL/L (136-145) Potassium Level 3.4 MMOL/L (3.5-5.1) L Chloride Level 98 MMOL/L (98-107) Carbon Dioxide Level 26 MMOL/L (21-32) Anion Gap 13 mmol/L (5-15) Blood Urea Nitrogen 10 mg/dL (7-18) Creatinine 1.0 MG/DL (0.55-1.30) Estimat Glomerular Filtration Rate > 60 mL/min (>60) Glucose Level 107 MG/DL (74-106) H Calcium Level 8.4 MG/DL (8.5-10.1) L Phosphorus Level 2.8 MG/DL (2.5-4.9) Magnesium Level 2.2 MG/DL (1.8-2.4) Total Bilirubin 0.9 MG/DL (0.2-1.0) Aspartate Amino Transf (AST/SGOT) 37 U/L (15-37) Alanine Aminotransferase (ALT/SGPT) 49 U/L (12-78) Alkaline Phosphatase 121 U/L (46-116) H Total Protein 8.3 G/DL (6.4-8.2) H Albumin 4.2 G/DL (3.4-5.0) Globulin 4.1 g/dL Albumin/Globulin Ratio 1.0 (1.0-2.7) Microbiology Date/Time Source Procedure Growth Status 10/22/19 21:30 Blood Blood Culture - Preliminary NO GROWTH AFTER 24 HOURS Resulted 10/22/19 21:15 Blood Blood Culture - Preliminary NO GROWTH AFTER 24 HOURS Resulted 10/22/19 21:40 Nasopharynx SARS-CoV-2 RdRp Gene Assay - Final Complete Intake and Output 10/23/19 10/24/19 19:00 07:00 Intake Total 500 ml 2275 ml Balance 500 ml 2275 ml Intake Oral 500 ml 2000 ml IV Total 275 ml # Voids 8 # Bowel Movements 1 Assessment/Plan Status: stable, progressing, tolerating diet Assessment/Plan Impression: COVID 19 Pnemonia bilateral infiltrate dyspnea cough hypokalemia PLAN: abx oxygen prn s/p one dose dexamethasone in ED pulm inhalor puffs k replete PULM f/u FULL code Kolton Hunt MD [facility] [phone] time spent today 35 min over 50% in education, coordination care. questions answered time stamp of this note may not be the actual encounter time. Kolton Hunt MD Oct 24, 2019 23:17
[2019-10-25 04:00] VITALS: BP 124/75
[2019-10-25 06:18] LABS: BASOPHILS % (AUTO) 0.5 % (0.0-2.0); HEMATOCRIT 43.5 % (42.0-52.0); HEMOGLOBIN 14.8 G/DL (14.2-18.0); LYMPHOCYTES % (AUTO) 21.9 % (20.0-45.0); MEAN CORPUSCULAR VOLUME 87 FL (80-99); MONOCYTES % (AUTO) 6.4 % (1.0-10.0); NEUTROPHILS % (AUTO) 71.3 % (45.0-75.0); PLATELET COUNT 162 K/UL (150-450); RED BLOOD COUNT 4.99 M/UL (4.70-6.10); RED CELL DISTRIBUTION WIDTH 10.4 % (11.6-14.8)
[2019-10-25 07:34] LABS: ALANINE AMINOTRANSFERASE 35 U/L (12-78); ALBUMIN 3.8 G/DL (3.4-5.0); ALKALINE PHOSPHATASE 102 U/L (46-116); ANION GAP 14 mmol/L (5-15); ASPARTATE AMINO TRANSFERASE 33 U/L (15-37); BILIRUBIN,TOTAL 1.1 MG/DL (0.2-1.0); BLOOD UREA NITROGEN 10 mg/dL (7-18); CARBON DIOXIDE 24 MMOL/L (21-32); CHLORIDE 99 MMOL/L (98-107); CREATININE 0.9 MG/DL (0.55-1.30); PHOSPHORUS 3.1 MG/DL (2.5-4.9); POTASSIUM 3.6 MMOL/L (3.5-5.1); SODIUM 136 MMOL/L (136-145)
[2019-10-25 07:39] LABS: BILIRUBIN,DIRECT 0.2 MG/DL (0.0-0.3)
[2019-10-25 08:00] VITALS: BP 127/75
[2019-10-25] MEDS: Heparin 5000 units/ml inj SUBQ SCH (08:37)
--- NOTE | 2019-10-25 10:00 | Pulmonology Progress Note ---
Subjective Interval Events: None new Constitutional: Reports: no symptoms HEENT: Repors: no symptoms Respiratory: Reports: no symptoms Allergies: Coded Allergies: No Known Allergies (Unverified , 10/22/19) All Systems: reviewed and negative except above Objective Last 24 Hour Vital Signs Date Time Temp Pulse Resp B/P (MAP) Pulse Ox O2 Delivery O2 Flow Rate FiO2 10/25/19 08:00 98.2 108 19 127/75 (92) 97 10/25/19 04:00 98.9 94 18 124/75 (91) 98 10/24/19 23:52 99.4 109 20 129/76 (93) 98 10/24/19 21:15 Room Air 10/24/19 20:00 100.1 105 18 130/76 (94) 98 10/24/19 16:00 99.7 111 18 136/71 (92) 96 10/24/19 12:00 97.9 90 18 110/70 (83) 98 Intake and Output 10/24/19 10/25/19 19:00 07:00 Intake Total 720 ml 1135 ml Balance 720 ml 1135 ml Intake Oral 720 ml 860 ml IV Total 275 ml # Voids 3 5 General Appearance: no acute distress HEENT: normocephalic Respiratory: chest wall non-tender, lungs clear Cardiovascular: normal peripheral pulses Abdomen: normal bowel sounds Microbiology Date/Time Source Procedure Growth Status 10/22/19 21:30 Blood Blood Culture - Preliminary NO GROWTH AFTER 48 HOURS Resulted 10/22/19 21:15 Blood Blood Culture - Preliminary NO GROWTH AFTER 48 HOURS Resulted 10/22/19 21:40 Nasopharynx SARS-CoV-2 RdRp Gene Assay - Final Complete Laboratory Tests 10/25/19 05:30: White Blood Count 9.0, Red Blood Count 4.99, Hemoglobin 14.8, Hematocrit 43.5, Mean Corpuscular Volume 87, Mean Corpuscular Hemoglobin 29.7, Mean Corpuscular Hemoglobin Concent 34.0, Red Cell Distribution Width 10.4L, Platelet Count 162, Mean Platelet Volume 6.4L, Neutrophils (%) (Auto) 71.3, Lymphocytes (%) (Auto) 21.9, Monocytes (%) (Auto) 6.4, Eosinophils (%) (Auto) 0.0, Basophils (%) (Auto ) 0.5, Sodium Level 136, Potassium Level 3.6, Chloride Level 99, Carbon Dioxide Level 24, Anion Gap 14, Blood Urea Nitrogen 10, Creatinine 0.9, Estimat Glomerular Filtration Rate > 60, Glucose Level 117H, Calcium Level 8.0L, Phosphorus Level 3.1, Magnesium Level 2.4, Total Bilirubin 1.1H, Direct Bilirubin 0.2, Aspartate Amino Transf (AST/SGOT) 33, Alanine Aminotransferase ( ALT/SGPT) 35, Alkaline Phosphatase 102, Total Protein 7.7, Albumin 3.8, Globulin 3.9, Albumin/Globulin Ratio 1.0 Current Medications Medications (Trade) Dose Ordered Sig/Jose Route PRN Reason Start Time Stop Time Status Last Admin Dose Admin Acetaminophen (Tylenol) 650 mg Q6H PRN ORAL Temp >100.5 10/22/19 23:30 11/21/19 23:29 10/24/19 08:21 Albuterol Sulfate (Proventil MDI) 2 puff Q6H PRN INH Shortness of Breath 10/24/19 10:30 01/22/20 10:29 Azithromycin 500 mg/Dextrose 275 ml @ 275 mls/hr Q24H IV 10/23/19 21:00 10/29/19 21:59 10/24/19 20:12 Cetylpyridinium Chloride (Cepacol) 1 lozg Q2H PRN NAVARRO For Cough 10/24/19 23:45 01/22/20 23:44 10/25/19 08:37 Heparin Sodium (Porcine) (Heparin 5000 units/ml) 5,000 units EVERY 12 HOURS SUBQ 10/23/19 09:00 12/07/19 08:59 10/25/19 08:37 Assessment/Plan Assessment/Plan IMPRESSION: Bilateral COVID-19 pneumonia. 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 Saturating well on RA Kellie Paulson Omar Syed MD Oct 25, 2019 10:00
[2019-10-25 12:00] VITALS: BP 127/89
--- NOTE | 2019-10-25 13:56 | Internal Med Progress Note ---
Subjective Date of Service: Oct 25, 2019 Physician Name Kolton Hunt Attending Physician Aurora Car M.D. Current Medications Medications (Trade) Dose Ordered Sig/Jose Route PRN Reason Start Time Stop Time Status Last Admin Dose Admin Acetaminophen (Tylenol) 650 mg Q6H PRN ORAL Temp >100.5 10/22/19 23:30 11/21/19 23:29 10/25/19 12:59 Albuterol Sulfate (Proventil MDI) 2 puff Q6H PRN INH Shortness of Breath 10/24/19 10:30 01/22/20 10:29 Azithromycin 500 mg/Dextrose 275 ml @ 275 mls/hr Q24H IV 10/23/19 21:00 10/29/19 21:59 10/24/19 20:12 Cetylpyridinium Chloride (Cepacol) 1 lozg Q2H PRN NAVARRO For Cough 10/24/19 23:45 01/22/20 23:44 10/25/19 08:37 Heparin Sodium (Porcine) (Heparin 5000 units/ml) 5,000 units EVERY 12 HOURS SUBQ 10/23/19 09:00 12/07/19 08:59 10/25/19 08:37 Allergies: Coded Allergies: No Known Allergies (Unverified , 10/22/19) Subjective feels bit improved off oxygen on RA Objective Last Vital Signs Date Time Temp Pulse Resp B/P (MAP) Pulse Ox O2 Delivery O2 Flow Rate FiO2 10/25/19 13:29 98.6 10/25/19 12:00 101 17 127/89 (102) 98 10/25/19 09:00 Room Air 10/23/19 19:34 21 Laboratory Tests Test 10/25/19 05:30 White Blood Count 9.0 K/UL (4.8-10.8) Red Blood Count 4.99 M/UL (4.70-6.10) Hemoglobin 14.8 G/DL (14.2-18.0) Hematocrit 43.5 % (42.0-52.0) Mean Corpuscular Volume 87 FL (80-99) Mean Corpuscular Hemoglobin 29.7 PG (27.0-31.0) Mean Corpuscular Hemoglobin Concent 34.0 G/DL (32.0-36.0) Red Cell Distribution Width 10.4 % (11.6-14.8) L Platelet Count 162 K/UL (150-450) Mean Platelet Volume 6.4 FL (6.5-10.1) L Neutrophils (%) (Auto) 71.3 % (45.0-75.0) Lymphocytes (%) (Auto) 21.9 % (20.0-45.0) Monocytes (%) (Auto) 6.4 % (1.0-10.0) Eosinophils (%) (Auto) 0.0 % (0.0-3.0) Basophils (%) (Auto) 0.5 % (0.0-2.0) Sodium Level 136 MMOL/L (136-145) Potassium Level 3.6 MMOL/L (3.5-5.1) Chloride Level 99 MMOL/L (98-107) Carbon Dioxide Level 24 MMOL/L (21-32) Anion Gap 14 mmol/L (5-15) Blood Urea Nitrogen 10 mg/dL (7-18) Creatinine 0.9 MG/DL (0.55-1.30) Estimat Glomerular Filtration Rate > 60 mL/min (>60) Glucose Level 117 MG/DL (74-106) H Calcium Level 8.0 MG/DL (8.5-10.1) L Phosphorus Level 3.1 MG/DL (2.5-4.9) Magnesium Level 2.4 MG/DL (1.8-2.4) Total Bilirubin 1.1 MG/DL (0.2-1.0) H Direct Bilirubin 0.2 MG/DL (0.0-0.3) Aspartate Amino Transf (AST/SGOT) 33 U/L (15-37) Alanine Aminotransferase (ALT/SGPT) 35 U/L (12-78) Alkaline Phosphatase 102 U/L (46-116) Total Protein 7.7 G/DL (6.4-8.2) Albumin 3.8 G/DL (3.4-5.0) Globulin 3.9 g/dL Albumin/Globulin Ratio 1.0 (1.0-2.7) Microbiology Date/Time Source Procedure Growth Status 10/22/19 21:30 Blood Blood Culture - Preliminary NO GROWTH AFTER 48 HOURS Resulted 10/22/19 21:15 Blood Blood Culture - Preliminary NO GROWTH AFTER 48 HOURS Resulted 10/22/19 21:40 Nasopharynx SARS-CoV-2 RdRp Gene Assay - Final Complete Intake and Output 10/24/19 10/25/19 19:00 07:00 Intake Total 720 ml 1135 ml Balance 720 ml 1135 ml Intake Oral 720 ml 860 ml IV Total 275 ml # Voids 3 5 Assessment/Plan Assessment/Plan Impression: COVID 19 Pnemonia bilateral infiltrate dyspnea cough hypokalemia PLAN: abx oxygen prn s/p one dose dexamethasone in ED pulm inhalor puffs k replete PULM f/u FULL code Kolton Hunt MD [facility] [phone] time spent today 35 min over 50% in education, coordination care. questions answered time stamp of this note may not be the actual encounter time. Kolton Hunt MD Oct 25, 2019 13:56
[2019-10-25 16:00] VITALS: BP 123/69
--- NOTE | 2019-10-25 17:10 | Discharge Instructions ---
Discharge Instructions Discharge Instructions Diet: regular Resume Normal Activity?: Yes Activity: other - self isolation total 14 days For Surgical Patients May shower: Yes Contact your physician for: other - shortness of breath For Congestive Heart Failure Reminder Report to your physician any weight gain of 5 pounds or more in one week. Kolton Hunt MD Oct 25, 2019 17:10
--- NOTE | 2019-10-29 12:39 | Discharge Summary ---
Discharge Summary Discharge Summary _ DATE OF ADMISSION: 10/22/2019 DATE OF DISCHARGE: 10/25/2019 DISCHARGED BY: Dr. Hunt REASON FOR ADMISSION: 39 years old male with no significant past medical history, was evaluated earlier prior . His chest x-ray was consistent with COVID pneumonia. Patient refused labs and signed AGAINST MEDICAL ADVICE at that time . He stated that he wants to go to [place] and there. He returned to ED, reporting being ill for several weeks with cough, shortness of breath, fevers, chills, muscle aches. Patient declined smoking. Upon evaluation patient was febrile with temperature 102.4, tachycardic with heart rate 118, tachypneic , pulse oximetry was 92% on the room air. Laboratory work-up revealed no leukocytosis, stable hemoglobin, hematocrit and platelet count 141. Lymphocyte count 21.5. Urinalysis revealed +2 protein ,no evidence of urinary tract infection. Electrolytes reveal sodium 133, chloride 95. BUN 11, creatinine 1.3. Glucose 101. Lactic acid 1.0. Ferritin 484. LDH 287. CRP 5.3 Troponin was negative . Pro BNP 16 . EKG revealed sinus rhythm , no acute ischemic changes. Chest x-ray demonstrated bilateral infiltrates, likely pneumonia. Rapid COVID-19 was positive . In ED patient received 1 dose of dexamethasone. Patient subsequently admitted for further management. CONSULTANTS: pulmonary Dr. Weller HOSPITAL COURSE: Patient admitted to isolation room and started on empiric antibiotic . Supplemental oxygen provided as needed to keep pulse oximetry above 92%. Pulmonary toilet provided. Cat Scanner Operator closely followed. DVT prophylaxis provided. Supportive care provided. Blood cultures were negative. Patient developed diarrhea Stool for C. difficile was negative. Patient clinically improved. Fevers resolved. 1 day leukocytosis resolved. Pulse oximetry remained stable on room air. Potassium was replaced Patient clinically stabilized and was ready for discharge home. FINAL DIAGNOSES: Bilateral COVID-19 pneumonia DISCHARGE MEDICATIONS: See Medication Reconciliation list. DISCHARGE INSTRUCTIONS: Patient was discharged home. Patient was follow-up with a primary care provider in 1 week I have been assigned to dictate discharge summary for this account. I was not involved in the patient's management. Corina Gomez NP Oct 29, 2019 12:39
== END 2019-10-25 18:50 | disposition home or self-care (01) | DRG 137 ==
LOC: EMR 21:10 → 4E 21:47 → EDBEDREQ 21:58
DX: U07.1 COVID-19 (principal); J12.89 Other viral pneumonia; E87.6 Hypokalemia
CPT/HCPCS: 36415; 80053; 81003; 82248; 82550; 82728; 83605; 83615; 83690; 83735; 83880; 84100; 84484; 85025; 85379; 85610; 85730; 86140; 87040; 87324; 93005; 94664; 96361; 96365; 96368; 96375; 99285; J7030; J8499; U0002

== ENCOUNTER → 2019-10-22 | Emergency (ER) | payer MEDICAID ==
[~2019-10-22] VITALS: Ht 172.7 cm; Wt 79.4 kg
[~2019-10-22] MED LIST: Acetaminophen 500mg (ES) tab ORAL ONE
[2019-10-22 17:11] VITALS: BP 129/76
--- NOTE | 2019-10-22 17:16 | NUR ---
ED Nurse Note: Patient walked in to ER from home due to high fever since last Tuesday. Stated has cough, SOB, body ache. Patient's temp 101.9 at triage, O2 sat 94% on RA, has even non-labored breathing. Patient presented calm, AAOx4, skin is hot to touch.
--- NOTE | 2019-10-22 17:19 | NUR ---
ED Nurse Note: X ray done
--- NOTE | 2019-10-22 17:43 | NUR ---
Dr Draper verbally canceled ABG order
--- NOTE | 2019-10-22 17:48 | NUR ---
ED Nurse Note: Pt states he is going AMA because he wants to go to [place] to see his children. ERMD states the risks to the patient. AMA form filled out. MICHELE and CN aware.
--- NOTE | 2019-10-22 18:08 | Emergency Room Report ---
History of Present Illness General Chief Complaint: Fever Source: Patient Present Illness HPI Patient presents with 1 week of worsening symptoms. He has had a cough, some chest pain with the cough, high fevers, weakness and muscle aches and occasional headache and some dyspnea on exertion. Recently the dyspnea is worsened. He feels this at rest. He is felt some nausea but denies vomiting. His stools have occasionally been loose. 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 He is not diabetic or hypertensive. He is concerned he has COVID-19. No sore throat, palpitations, dysuria, abdominal pain, rashes, depression, anxiety, visual changes, dizziness. Allergies: Coded Allergies: No Known Allergies (Unverified , 10/22/19) COVID-19 Screening Contact w/high risk pt: No Recent Travel to affected area: No Experienced COVID-19 symptoms?: Yes COVID-19 symptoms experienced: Fever (T>100.4F or >38C), Shortness of Breath, Cough, Flu-Like Symptoms COVID-19 Testing performed CABLE TELEVISION TECHNICIAN: No Patient History Past Medical History: none, see triage record Social History: Denies: smoking, alcohol use, drug use Social History Narrative , 3 sons Reviewed Nursing Documentation: PMH: Agreed; PSxH: Agreed Review of Systems All Other Systems: negative except mentioned in HPI Physical Exam Vital Signs Date Time Temp Pulse Resp B/P (MAP) Pulse Ox O2 Delivery O2 Flow Rate FiO2 10/22/19 16:56 101.8 103 22 129/76 (93) 94 Room Air Sp02 EP Interpretation: reviewed, abnormal - Interpreted as low by me General Appearance: well appearing, no apparent distress, GCS 15 Head: normocephalic, atraumatic Eyes: bilateral eye normal inspection, bilateral eye PERRL, bilateral eye EOMI ENT: moist mucus membranes Neck: supple Respiratory: crackles - Bilaterally, other - Occasional cough Cardiovascular #1: no edema, tachycardia Cardiovascular #2: 2+ radial (R) Gastrointestinal: normal inspection, normal bowel sounds, non tender, no mass, non-distended Musculoskeletal: back normal, normal range of motion, gait/station normal Neurologic: alert, oriented x3, grossly normal Psychiatric: mood/affect normal Skin: no rash, other - Warm to touch Medical Decision Making Diagnostic Impression: Primary Impression: Pneumonia due to COVID-19 virus ER Course Patient presents with 1 week of worsening cough and dyspnea with fevers. Differential includes pneumonia, COVID-19 pneumonia, bronchitis, sepsis amongst others. Suspicion for COVID-19 is high. Evaluation with EKG, chest x-ray and labs. Treat with IV hydration, Decadron. Consideration for oxygen. Chest x-ray with bilateral in for infiltrates consistent with COVID-19. When discussed further work-up with patient he states he is refusing. The is brought back. He insists on going to see his sons and wants to go to [place] to . He is advised that if he comes into the hospital most likely he is not going to as his comorbidities are low. If he leaves the hospital his risk of is very high. Patient insisted on signing out AGAINST MEDICAL ADVICE. was present. Patient was invited to return if he changed his mind. Chest X-Ray Diagnostic Results Chest X-Ray Diagnostic Results : Chest X-Ray Ordered: Yes # of Views/Limited/Complete: 1 View Indication: Shortness of Breath EP Interpretation: Yes Interpretation: no effusion, no pneumothorax, other - Bilateral infiltrates Impression: Other Electronically Signed by: Electronically signed by Alexi Draper MD Last Vital Signs Date Time Temp Pulse Resp B/P (MAP) Pulse Ox O2 Delivery O2 Flow Rate FiO2 10/22/19 17:11 103 22 Room Air 10/22/19 17:11 101.9 129/76 94 Status: unchanged Disposition: AGAINST MEDICAL ADVICE Condition: Unknown Alexi Draper MD Oct 22, 2019 18:08
--- NOTE | 2019-10-22 18:25 | Diagnostic Imaging Report ---
Indication: Shortness of breath, cough, fever Technique: One view of the chest Comparison: none Findings: Bilateral basilar patchy and streaky infiltrates and peribronchial vascular distribution are noted. The pleural spaces are clear. The heart size is normal. Impression: Bilateral infiltrates, likely pneumonia, quite possibly viral. Correlate with clinical findings
== END | disposition left against medical advice (07) ==
LOC: EDBD 17:10 → EMR 18:02 → CANBEDREQ 18:19
DX: U07.1 COVID-19 (principal); R00.0 Tachycardia, unspecified; J12.89 Other viral pneumonia
CPT/HCPCS: 71045; J7030; Z7502; 99283